=== PATIENT | male | born 1995 | race Two or more races ===

== ENCOUNTER 2020-09-25 07:03 | Outpatient (CLI) | payer OTHER | END 2020-09-25 07:45 | disposition home or self-care (01) | LOC: LAB 07:03 | PROVIDERS: ATTEND Internal Medicine Endocrinology, Diabetes & Metabolism | DX: Z20.822 Contact with and (suspected) exposure to COVID-19 (principal); Z20.828 Contact with and (suspected) exposure to other viral communicable diseases ==

== ENCOUNTER 2021-01-05 07:49 | Outpatient (CLI) | payer OTHER | END 2021-01-05 16:15 | disposition home or self-care (01) | LOC: LAB 07:49 | PROVIDERS: ATTEND Emergency Medicine Pediatric Emergency Medicine | DX: Z03.818 Encounter for observation for suspected exposure to other biological agents ruled out (principal) ==